=== PATIENT | male | born 1995 | race Caucasian/White ===

== ENCOUNTER 2023-08-09 17:48 | Emergency (ER) | payer BC, SELFPAY ==
[2023-08-09] VITALS (11 sets, daily range): BP systolic 132–150; BP diastolic 91–97; PULSE 76–86; RESP 16; TEMP 36.6; O2SAT 98–100
--- NOTE | ~2023-08-09 | CT_ITS ---
EXAMINATION: CT abdomen pelvis w con DATE: 08/09/2023 19:50 INDICATION: LLQ pain, epigastric pain, diarrhea TECHNIQUE: Computed tomography (CT) of the abdomen and pelvis was performed mild distal esophageal an d gastric wall edema intravenous contrast. Automated exposure control and iterative reconstruction te chnique were employed. The dose-length product was 463.97 mGy-cm. COMPARISON: None. FINDINGS: Lower thorax: Unremarkable Liver: Normal. Biliary/Gallbladder: Gallbladder is normal. No bile duct dilation. Pancreas: No mass or duct dilation. Spleen: Normal. Adrenals:No mass. Kidneys: No suspicious mass, obstructing stone, or hydronephrosis. GI tract: Mild distal esophageal and gastric wall edema. No small or large bowel dilation. Normal leobardo endix. Mesentery/Peritoneum: No ascites, mass, or free air. Retroperitoneum: No mass. Pelvis: Pelvic organs are within normal limits. Soft Tissues: Soft tissues and body wall unremarkable. Bones: No acute osseous finding. IMPRESSION: Mild esophagitis/gastritis. Otherwise, no acute abdominopelvic process detected. Reviewed, dictated and finalized at location K.
--- NOTE | 2023-08-09 17:55 | ED.ABDPAIN ---
HPI - Abdominal Pain General Chief Complaint: Abdominal Pain <LALITA Restrepo Last Filed: 08/09/23 18:04> Stated Complaint: abd pain <LALITA Restrepo Last Filed: 08/09/23 18:04> Time Seen by Provider: 08/09/23 17:55 <LALITA Restrepo Last Filed: 08/09/23 18:04> Focused HPI: Patient is a 27-year-old who presents the ED with report of abdominal pain. Patient reports he 1st developed pain just below his umbilicus on Wednesday, worse with movement. Pain was sharp and stabbing at that time. Sharp pain resolved on its own, though he still had some discomfort throughout his lower abdomen afterwards. Went to an UC yesterday and was told he may be constipated, took a laxative and had diarrhea yesterday. Today, developed pain again in his LLQ and epigastric region. Denies further diarrhea, N/V, fever, urinary complaints. GENERAL: Well-appearing, well-nourished, and in no acute distress. HEAD: Normocephalic, atraumatic. CHEST: Clear to auscultation. ?No respiratory distress. HEART: Regular rate and rhythm.? ABD: Normoactive BS. Mild TTP in epigastric region and periumbilical region. NEURO: ?Alert and oriented x3. Patient screened in triage and initial orders placed.? ?Additional care and disposition to be based upon?diagnostic testing and treatment. <LALITA Restrepo Last Filed: 08/09/23 18:04> Source: patient <LALITA Restrepo Last Filed: 08/09/23 18:04> Mode of arrival: ambulatory <LALITA Restrepo Last Filed: 08/09/23 18:04> Limitations: no limitations <LALITA Restrepo Last Filed: 08/09/23 18:04> History of Present Illness HPI narrative: 27-year-old male presenting emergency department for abdominal pain intermittently for 3 days. Patient states the pain started 3 days ago after he ate chick sera a salad and began developing pain around his navel area. He states the pain shortly went away and he had pizza for dinner and the pain started again. States yesterday he had some diarrhea morning and then had mashed potatoes, mac and cheese and curled veggies for lunch. He began having pain around the belly button. He went to [facility] where he states they took an x-ray of his abdomen and found stool in his stomach. They advised the patient to begin taking a stool softener. He took a dose of Dulcolax last night and has had a few bouts of diarrhea since. Today the patient states he developed pain in his left lower quadrant. He denies nausea vomiting, fever, dysuria or hematuria, diarrhea, prior abdominal surgeries, melena or hematochezia. Last bowel movement was today. Denies obstipation. The patient also states he has been having increased heartburn since the start of the symptoms. <Skylar Carrasquillo PA-C - Last Filed: 08/09/23 20:25> Related Data Allergies/Adverse Reactions: Allergies Allergy/AdvReac Type Severity Reaction Status Date / Time No Known Allergies Allergy Verified 08/09/23 19:27 <Sabrina Pereira PA-C - Last Filed: 08/09/23 18:04> Review of Systems Review of Systems: CONSTITUTIONAL: Denies fever, chills, or sweats. EYES: Denies visual changes, redness, or discharge. ENT: Denies rhinorrhea, congestion, sore throat, or otalgia. CARDIOVASCULAR: Denies chest pain, palpitations, or edema. RESPIRATORY: Denies cough or dyspnea. GASTROINTESTINAL: See HPI GENITOURINARY: Denies dysuria or hematuria. SKIN: Denies rash or itching. MUSCULOSKELETAL: Denies back pain, joint pain, or myalgia. NEUROLOGIC: Denies headache, numbness, or weakness. PSYCHIATRIC: Denies anxiety or depression. <Skylar Carrasquillo PA-C - Last Filed: 08/09/23 20:25> Exam Narrative: GENERAL: Well-appearing, well-nourished, and in no acute distress. HEAD: Normocephalic, atraumatic. EYES: PERRLA and EOMI. ENT: Nares clear, no rhinorrhea or epistaxis. Mucous membranes moist. NECK: Supple. CHEST: Clear to auscultat
[2023-08-09 18:40] LABS: Basophils Percent Auto 0.7 % (0.2-1.2); Eosinophils Absolute Auto 0.2 K/mm3 (0-0.3); Eosinophils Percent Auto 3.2 % (0-4.4); Hematocrit 47.1 % (42.0-52.0); Hemoglobin 14.9 g/dL (14.0-18.0); Immature Granulocyte Absolute 0.01 K/mm3 (0.00-0.031); Immature Granulocyte Percent A 0.2 % (0-0.5); Lymphocytes Absolute Auto 2.61 K/mm3 (0.9-3.2); Lymphocytes Percent Auto 48.7 % (18.3-44.2); Mean Corpuscular HGB Conc 31.6 g/dl (32-36); Mean Corpuscular Hemoglobin 28.5 pg (26-34); Mean Corpuscular Volume 90.1 fl (80-100); Mean Platelet Volume 9.8 fl (7.4-10.4); Monocytes Absolute Auto 0.3 K/mm3 (0.1-0.6); Monocytes Percent Auto 6.3 % (2.6-8.5); Neutrophils Absolute Auto 2.2 K/mm3 (1.3-6.7); Neutrophils Percent Auto 40.9 % (45.5-73.1); Platelet Count Result 331 k/mm3 (150-375); Red Blood Count 5.23 M/mm3 (4.6-6.20); Red Cell Distribution Width 12.8 % (11.5-14.5); White Blood Count 5.4 K/mm3 (4.5-10.0)
[2023-08-09 18:53] LABS: Appearance Urine Clear (Clear); Bilirubin Urine Negative (Negative); Blood Urine Negative (Negative); Color Urine Yellow (Yellow); Glucose Urine UA Negative (Negative); Ketones Urine Negative (Negative); Leukocyte Esterase Ur Negative LEU/UL (Negative); Nitrate Urine Negative (Negative); Protein Urine Negative (Negative); Specific Grav Ur 1.005 (1.001-1.035); Urobilinogen Urine 0.2 mg/dL (<2.0); pH Urine 7.5 (5.0-9.0)
[2023-08-09 18:56] LABS: Add Urine Microscopic? NO
[2023-08-09 19:00] LABS: Alanine Aminotransferase 27 U/L (6-50); Albumin Level 5.3 g/dL (3.5-5.1); Alkaline Phosphatase 96 U/L (38-126); Anion Gap 9 mmol/L (4-12); Aspartate Amino Transferase 24 U/L (17-59); Bilirubin,Total 0.7 mg/dL (0.2-1.3); Blood Urea Nitrogen 12 mg/dL (9-20); Calcium 10.3 mg/dL (8.4-10.2); Carbon Dioxide 28 mmol/L (22-30); Chloride 104 mmol/L (98-107); Estimated CRCL calculation 114 ml/min; Estimated Glomerular Filt Rate > 60; Glucose 90 mg/dL (65-110); Lipase 70 U/L (23-300); Sodium 141 mmol/L (137-145)
--- NOTE | 2023-08-09 19:20 | ECG_ITS ---
SEE SCANNED COPY FOR CONFIRMED REPORT MTDD
[2023-08-09] MEDS: FAMOTIDINE 20 MG/2 ML VIAL IV PUSH (19:28)
[2023-08-09 20:00] LABS: Troponin I < 0.012 ng/mL (0.000-0.034)
== END 2023-08-09 20:36 | disposition home or self-care (01) ==
PROVIDERS: Physician Assistant; Emergency Provider Physician Assistant
DX: K29.00 Acute gastritis without bleeding (principal)
CPT/HCPCS: 36415; 74177; 80053; 81003; 83690; 84484; 85025; 93005; 96374; 99284; Q9967